=== PATIENT | male | born 1970 | race Caucasian/White ===

== ENCOUNTER 2022-04-22 07:12 | Outpatient (REF) | payer OTHER, SELFPAY ==
[2022-04-22 11:40] LABS: Hematocrit 44.5 % (42.0-52.0); Hemoglobin 15.3 g/dl (14.0-18.0); Mean Corpuscular HGB Conc 34.4 g/dl (31.0-36.0); Mean Corpuscular Volume 93.1 fL (80.0-98.0); Mean Platelet Volume 10.7 fL (9.4-12.4); Platelet Count 156 X10*3/uL (160-400); Red Blood Count 4.78 X10*6/uL (4.60-5.80); Red Cell Distribution Width 12.1 % (11.0-16.0); White Blood Count 5.2 X10*3/uL (4.8-10.8)
[2022-04-22 12:14] LABS: Alanine Aminotransferase 7 U/L (0-40); Albumin Level 4.5 g/dL (3.5-5.0); Alkaline Phosphatase 52 U/L (39-117); Anion Gap 15 (12-20); Aspartate Amino Transferase 18 U/L (5-37); Bilirubin Total 1.2 mg/dL (0.0-1.0); Blood Urea Nitrogen 14 mg/dL (9-16); Calcium 9.5 mg/dL (8.4-10.2); Carbon Dioxide 27 mmol/L (22-29); Chloride 103 mmol/L (96-108); Cholesterol 199 mg/dL; Estimated Glomerular Filt Rate > 60; Glucose Fasting 94 mg/dL (60-99); HDL Cholesterol 55 mg/dL; LDL Cholesterol Calculated 128 mg/dl; Potassium 4.4 mmol/L (3.3-5.1); Sodium 141 mmol/L (135-145); Total Protein 6.8 g/dL (6.5-8.0); Triglycerides 83 mg/dL
[2022-04-22 12:26] LABS: Vitamin B12 1055 pg/mL (200-900)
== END 2022-04-22 07:13 | disposition home or self-care (01) ==
LOC: HO.WFDLDS 07:12
PROVIDERS: Visit Provider Hospitalist
DX: Z00.00 Encounter for general adult medical examination without abnormal findings (principal); Z86.39 Personal history of other endocrine, nutritional and metabolic disease
CPT/HCPCS: 36415; 80053; 80061; 82607; 84443; 85027

== ENCOUNTER 2022-05-04 09:24 | Outpatient (REF) | payer OTHER, SELFPAY ==
[2022-05-10 20:03] LABS: PSA, Ultra Sensitive 0.57 ng/mL
== END 2022-05-04 09:25 | disposition home or self-care (01) ==
LOC: HO.WFDLDS 09:24
PROVIDERS: Visit Provider Hospitalist
DX: Z12.5 Encounter for screening for malignant neoplasm of prostate (principal)
CPT/HCPCS: 36415; 84153

== ENCOUNTER → 2022-11-10 09:16 | Outpatient (BNVA) | payer OTHER, SELFPAY | PROVIDERS: PCP Nurse Practitioner Family; Visit Provider Physician Assistant ==

== ENCOUNTER 2022-12-27 12:06 | Day surgery (SDC) | payer OTHER, SELFPAY ==
[2022-12-23 10:13] VITALS: BMI 24.1
--- NOTE | 2022-12-26 11:49 | P.CONAN_ITS ---
Documented by User: Connie Portillo NP 12/26/22 11:49 HPI - Anesthesia Eval Consult details Narrative: 52yo M for Colonoscopy PMFSH Active Problems Active Problems: All Active Problems (Updated 12/23/22 @ 10:00 by Barbara Joe RN) Normal physical exam (Acute) Screening for colon cancer (Acute) Hx of non anemic vitamin B12 deficiency (Acute) Screening for prostate cancer (Acute) Past Medical History Medical History (Updated 12/23/22 @ 10:00 by Barbara Joe RN) No pertinent past medical history Family History Family History Father Cardiovascular disease No family history of mental disorder Mother No family history of mental disorder Diabetes mellitus type 2 in obese Glaucoma Surgical History Surgical History (Updated 12/23/22 @ 10:13 by Barbara Joe RN) H/O colonoscopy History of arthroplasty of right ankle History of colon surgery Hx of inguinal hernia surgery Hx of tonsillectomy Social History Social History (Updated 11/10/22 @ 09:59 by Nadja Simon PA-C) Household Members: Spouse Housing: House Are you a primary school child care attendant to a significant other at home: No Do you presently have visiting nurse or other home services: No Alcohol intake: current Alcohol intake frequency: holidays/special occasions only Patient Tobacco Use Status: Never used Tobacco e-Cigarette/Vaping Use: Never Used Use of substances other than those prescribed or required for medical reasons: No Have you been hit, kicked, punched, or otherwise hurt by someone within the past year? If so, by whom?: No Are you DNR?: No Advance Directives Information Provided: Yes (as above noted) Advance Directives on File: No Recently lost weight without trying: No Eating poorly because of decreased appetite: No Nutrition Risks: No Nutritional Risk Poor oral hygiene: No service: Yes Current occupational status: employed Current occupation: [employer] Allergies Allergy/AdvReac Type Severity Reaction Status Date / Time Seasonal Allergies Allergy Intermediate Itchy Eyes Verified 12/27/22 13:06 Home Medications Medication Instructions Recorded Confirmed Last Taken Type fluticasone propionate 50 1 spray intranasal DAILY 04/13/22 12/23/22 Unknown History mcg/actuation nasal spray,suspension ascorbic acid (vitamin C) 1,000 mg 500 mg PO DAILY 12/23/22 12/23/22 Unknown History tablet (Vitamin C) cholecalciferol (vitamin D3) 125 125 mcg PO DAILY 12/23/22 12/23/22 Unknown History mcg (5,000 unit) tablet (Vitamin D3) Exam Exam Date and Time: December 26, 2022 1149 Height,Weight and Vital Signs: Height 5 ft 10 in Weight 76.204 kg Assessment and Plan Assessment Anesthesia Assessment: Chart Reviewed Documented by User: Kiera Bronson MD 12/27/22 13:32 [facility] Past Medical History Medical History (Updated 12/23/22 @ 10:00 by Barbara Joe RN) No pertinent past medical history Family History Family History Father Cardiovascular disease No family history of mental disorder Mother No family history of mental disorder Diabetes mellitus type 2 in obese Glaucoma Family history of problems with anesthesia: No Surgical History Surgical History (Updated 12/23/22 @ 10:13 by Barbara Joe RN) H/O colonoscopy History of arthroplasty of right ankle History of colon surgery Hx of inguinal hernia surgery Hx of tonsillectomy History of Problems with Anesthesia: No Social History Social History (Updated 11/10/22 @ 09:59 by Nadja Simon PA-C) Household Members: Spouse Housing: House Are you a primary school child care attendant to a significant other at home: No Do you presently have visiting nurse or other home services: No Alcohol intake: current Alcohol intake frequency: holidays/special occasions only Patient Tobacco Use Status: Never used Tobacco e-Cigarette/Vaping Use: Never Used Use of substances other than those prescribed or required for medical reasons: No Have you been hit, kicked, punched, or otherwise hurt by someone within the past year? If so, by whom?: No Are you DNR?: No Advance Directives Information Provided: Yes (as above noted) Advance Directives on File: No Recently lost weight without trying: No Eating poorly because of decreased appetite: No Nutrition Risks: No Nutritional Risk Poor oral hygiene: No service: Yes Current occupational status: employed Current occupation: [employer] Meds Allergies Allergy/AdvReac Type Severity Reaction Status Date / Time Seasonal Allergies Allergy Intermediate Itchy Eyes Verified 12/27/22 13:06 Home Medications Medication Instructions Recorded Confirmed Last Taken Type fluticasone propionate 50 1 spray intranasal DAILY 04/13/22 12/23/22 Unknown History mcg/actuation nasal spray,suspension ascorbic acid (vitamin C) 1,000 mg 500 mg PO DAILY 12/23/22 12/23/22 Unknown History tablet (Vitamin C) cholecalciferol (vitamin D3) 125 125 mcg PO DAILY 12/23/22 12/23/22 Unknown History mcg (5,000 unit) tablet (Vitamin D3) Exam Airway Mallampati Class: I TM Dist: >3cm Neck ROM: Full Loose/Missing/Broken Teeth: No Heart: rr Lungs: cta Assessment and Plan Assessment Anesthesia Assessment: Anesthesia Plan Discussed Final Anesthetic Review Family History of Problems with Anesthesia: No History of Problems with Anesthesia: No NPO: Yes ASA Class: I Final Preanesthetic Review: No Changes in Pt Med Stat, Meds/Allgs Chart Reviewed, Consent Obtained/Reviewed and Anes Risks/Benef Reviewed Patient Risk: Low Procedure Risk: Low Anesthetic Plan Anesthetic Plan: MAC: Disposition: Standard PACU
[2022-12-27 13:26] VITALS: BP 147/87; PULSE 85; RESP 15; TEMP 36.8; O2SAT 99
[2022-12-27] MEDS: Lactated Ringers 1,000 ML 100 ML IVCONT (13:34)
--- NOTE | 2022-12-27 14:42 | MHC.SHP ---
Pre-Procedural Eval Section A Date of Service: 12/27/22 Section B Chief Complaint: Encounter for screening for malignant neoplasm Relevant Family History (Specify if Yes): No Relevant Social History: None Present Medications: see Short Stay Collaborative assessment Medical History: No relevant PMH History of Previous Operations: Relevant previous surgery/procedure and date(s) (H/O colonoscopy History of arthroplasty of right ankle History of colon surgery Hx of inguinal hernia surgery Hx of tonsillectomy) Allergies: Allergies Allergy/AdvReac Type Severity Reaction Status Date / Time Seasonal Allergies Allergy Intermediate Itchy Eyes Verified 12/27/22 13:06 Review of Systems Sugical H&P ROS: Negative: Constitution, Cardiovascular, Respiratory, Neurological, Psychiatric, Hem-Onc, Allergic/Immunologic, Gastrointestinal, Genitourinary, Musculoskeletal, Integumentary, Endocrine and Eyes/Ears/Nose/Throat Exam Surgical H&P Exam: Normal: HEENT, Normal: Heart, Normal: Lungs, Normal: Extremities, Normal: Abdomen, Normal: Skin and Normal: Neurological Plan Diagnosis/Plan: Unchanged I have reviewed the history and physical and performed a pertinent physical examination on my patient. No changes have occurred unless specified. Time Spent With Patient Time: Total time managing care of this patient today ____ minutes.
--- NOTE | 2022-12-27 15:08 | P.OP_ITS ---
Operative Note Operative Note Date of Service: 12/27/22 Narrative: Operative Information Procedure Description: Colonoscopy Indication: screening Anesthesia: MAC COLONOSCOPY Instrument: Olympus variable stiffness ADULT scope 190L Colonoscopy Monitoring: Vital signs and clinical assessment, continuous EKG monitoring, Pulse oximetry, Carbon Dioxide monitoring and blood pressure monitoring were done throughout the procedure. Colon withdrawal time was 8 minutes. Procedure: The patient was placed in the left lateral decubitis position and pre-procedure medications were administered. After a digital rectal examination of the ano-rectum, the video colonoscope was inserted into the rectum and advanced through the colon to the cecum/TI. The colonoscope was slowly withdrawn in a retrograde panoramic fashion and the colon mucosa was carefully examined including a retroflexed view of the rectum. Findings and interventions are described below. Procedure Difficulty: easy Findings: Terminal Ileum-normal Cecum: 4-6 mm sessile polyp removed with cold forceps Ascending Colon: normal Transverse Colon -normal Descending Colon:normal Sigmoid Colon: normal Rectum: Retroflexion with small internal hemorrhoids, grade I Anorectum - normal Colon preparation: [facility] Mark Bowel Preparation Scale Right colon; 2 Transverse colon: 3 Left colon; 3 (0 = Unprepared colon segment with mucosa not seen due to solid stool that cannot be cleared. 1 = Portion of mucosa of the colon segment seen, but other areas of the colon segment not well seen due to staining, residual stool and/or opaque liquid. 2 = Minor amount of residual staining, small fragments of stool and/or opaque li quid, but mucosa of colon segment seen well. 3 = Entire mucosa of colon segment seen well with no residual staining, small fragments of stool or opaque liquid) Impression and Post Procedure Diagnosis: polyp internal hemorrhoids Plan: High fiber diet leaflet Avoid straining at stool, epsom salts and sitz bath, anusol supps or cream Repeat Colonoscopy in 5-7 years due to polyp or earlier if clinically indicated Above findings were reviewed with the patient and relevant handouts were provided if indicated.
[2022-12-27 15:14] VITALS: BP 96/63; RESP 16; TEMP 36.7; O2SAT 97
[2022-12-27 15:29] VITALS: BP 101/58; PULSE 78; RESP 16; O2SAT 99
[2022-12-27 15:37] VITALS: BP 123/75; PULSE 71; RESP 14; TEMP 36.8; O2SAT 99
== END 2022-12-27 15:40 | disposition home or self-care (01) ==
PROVIDERS: PCP Nurse Practitioner Family; Visit Provider Internal Medicine Gastroenterology
PROC: 0DJD8ZZ Inspection of Lower Intestinal Tract, Via Natural or Artificial Opening Endoscopic (ICD-10-PCS; CPT 45378; principal; 2022-12-27 15:20)
DX: Z12.11 Encounter for screening for malignant neoplasm of colon (principal); D12.0 Benign neoplasm of cecum; K64.0 First degree hemorrhoids; E53.8 Deficiency of other specified B group vitamins; Z98.890 Other specified postprocedural states; J30.2 Other seasonal allergic rhinitis; Z79.51 Long term (current) use of inhaled steroids; Z79.899 Other long term (current) drug therapy
CPT/HCPCS: 45380; 88305

== ENCOUNTER 2023-01-17 08:24 | Outpatient (AMB) | payer OTHER, SELFPAY ==
--- NOTE | 2023-01-17 08:25 | A.OFFVIS_ITS ---
Intake Vital Signs 01/17/23 08:30 Height 5 ft 10 in Weight 170 lb BMI 24.4 BP 128/72 Blood Pressure Location Lt brachial Position Sitting Pulse 74 Intake Visit Reasons: s/p colon- [place] Intake Note: Patient follow up for Colonoscopy results. Patient denies any GI issues. 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 Required: No Accompanied by: Self / Same As Patient Allergies Seasonal Allergies Allergy (Intermediate, Verified 12/27/22 13:06) Itchy Eyes HPI HPI Comments History of Present Illness Details A 52-year-old male follows up after recent screening colonoscopy-with polypectomy Tolerated procedure well He has no GI or general complaints Reviewed procedure report and pathology No nausea, vomiting, hematemesis, hematochezia fever chills PFSH Medical History (Updated 01/17/23 @ 08:33 by Nadja Simon PA-C) No pertinent past medical history Surgical History H/O colonoscopy History of arthroplasty of right ankle History of colon surgery Hx of inguinal hernia surgery Hx of tonsillectomy Family History Father Cardiovascular disease No family history of mental disorder Mother No family history of mental disorder Diabetes mellitus type 2 in obese Glaucoma Social History Household Members: Spouse Housing: House Are you a primary healthcare translator to a significant other at home: No Do you presently have visiting nurse or other home services: No Alcohol intake: current Alcohol intake frequency: holidays/special occasions only Patient Tobacco Use Status: Never used Tobacco e-Cigarette/Vaping Use: Never Used service: Yes Current occupational status: employed Current occupation: [employer] Review of Systems Const All systems reviewed & are unremarkable except as noted in HPI and below Card Denies chest pain and Denies dyspnea Resp Denies dyspnea Physical Exam Vital Signs: Last Vital Signs Pulse 74 01/17/23 08:30 BP 128/72 01/17/23 08:30 BMI result Body Mass Index 24.4 Const General: cooperative, healthy appearing and well groomed Orientation/consciousness: patient oriented x3 Limitations: no limitations Resp Effort & Inspection: normal respiratory effort and able to speak in complete sentences Neuro General: patient oriented x3 Extrem General: Yes full ROM Psych Appearance: grossly normal and well kempt Mental Status: mental status grossly normal Speech and movement: Normal speech and movement present Affect: normal affect Attitude: cooperative Thought process: Normal thought process present Thought content: Normal thought content present Results Reviewed Results Reviewed: mpression and Post Procedure Diagnosis: polyp internal hemorrhoids Plan: High fiber diet leaflet Avoid straining at stool, epsom salts and sitz bath, anusol supps or cream Repeat Colonoscopy in 5-7 years due to polyp or earlier if clinically indicated Name:?Sachin Smith Age/Sex: 52/M Attending: Roxane Duron MD : 1970 Submitted by: Roxane Duron MD Copies to: Annabel Mckeon [facility] MR #: [id number] ? Status: [facility] Collected: 12/27/22 Location: [facility] Received: 12/28/22 Diagnosis Colon, cecal polyp:? Tubular adenoma; negative for high-grade dysplasia and carcinoma. Clinical History Pre-Op Dx:? Colon cancer screening Post-Op Dx: Colon polyp, internal hemorrhoid Assessment & Plan Assessment & Plan (1) Tubular adenoma of colon: Comment: AFDR colon screening at 39 Code(s): D12.6 - Benign neoplasm of colon, unspecified Plan: repeat colon 5 years Plan repeat 5 years Diagnosis Colon, cecal polyp:? Tubular adenoma; negative for high-grade dysplasia and carcinoma. Repeat colon 5 years Patient Instructions: Very pleasant 52-year-old male family history colon polyps, follows up after recent colonoscopy with polypectomy Reviewed procedure report and pathology repeat colon 5 years AFDR colon screening at 39 Encouraged to call questions or concerns Coding Level of Care Code Est Pt Level 3 (45423) Diagnoses Tubular adenoma of colon D12.6 Time Spent (min) 20
[2023-01-17 08:30] VITALS: BP 128/72; PULSE 74; BMI 24.4
== END 2023-01-17 08:46 | disposition home or self-care (01) ==
PROVIDERS: PCP Nurse Practitioner Family; Visit Provider Physician Assistant
DX: D12.0 Benign neoplasm of cecum (principal)
CPT/HCPCS: 99213

== ENCOUNTER → 2023-01-17 08:24 | Outpatient (BNVA) | payer OTHER, SELFPAY | PROVIDERS: PCP Nurse Practitioner Family; Visit Provider Physician Assistant ==

== ENCOUNTER 2023-06-13 08:24 | Outpatient (AMB) | payer OTHER, SELFPAY ==
[2023-06-13 08:26] VITALS: BP 128/78; PULSE 67; RESP 13; TEMP 36.3; O2SAT 99; BMI 24.7
--- NOTE | 2023-06-13 08:26 | A.OFFPC_ITS ---
Vital Signs 06/13/23 08:26 Height 5 ft 10 in Weight 172 lb 6 oz BMI 24.7 BP 128/78 Blood Pressure Location Rt brachial Position Sitting Respiration 13 Pulse 67 Pulse Source Pulse Oximeter Temp 97.3 F Temp Source Temporal Artery Scan Pulse Oximetry (%) 99 Oxygen Delivery Method Room Air Intake Visit Reasons: PE Floor Runner Required: No Accompanied by: Self / Same As Patient Allergies Seasonal Allergies Allergy (Intermediate, Verified 06/13/23 08:43) Itchy Eyes Medication List - Last Reconciled 06/13/23 by Annabel Mckeon CNP ascorbic acid (vitamin C) (Vitamin C) 500 mg PO DAILY cholecalciferol (vitamin D3) (Vitamin D3) 125 mcg PO DAILY fluticasone propionate 50 mcg/actuation 1 spray intranasal DAILY Tobacco use date assessed: 06/13/23 Dental Screening Dental Screen Date: 06/13/23 Did you have a dental visit in the last 12 months?: Yes Did you have a dental problem in the last 6 months where you did not have access to dental care?: No Was dental information given to patient?: Patient has dentist HPI HPI Comments History of Present Illness Details 52-year-old male presents for an extende d physical exam His former PCP was GILLIAN who is no longer with the practice He has history of tubular adenoma of the colon and non anemic vitamin B12 deficiency His last routine blood work was over a year ago He offers no complaints and denies acute symptoms at this time Last colonoscopy: 12/28/2022: polyp. Next colonoscopy in 5 years Shingrix vaccines: up-to-date [facility] Medical History No pertinent past medical history Surgical History H/O colonoscopy History of colon surgery Hx of inguinal hernia surgery History of arthroplasty of right ankle Hx of tonsillectomy Family History Father Cardiovascular disease No family history of mental disorder Mother No family history of mental disorder Diabetes mellitus type 2 in obese Glaucoma Social History Household Members: Spouse Housing: House Are you a primary respite care provider to a significant other at home: No Do you presently have visiting nurse or other home services: No Alcohol intake: current Alcohol intake frequency: holidays/special occasions only Patient Tobacco Use Status: Never used Tobacco e-Cigarette/Vaping Use: Never Used service: Yes Current occupational status: employed Current occupation: [employer] Cognitive needs: No Hearing needs: No Vision needs: No Questionnaire PHQ-9 Over the last 2 weeks, how often have you been bothered by any of the following problems? 1. Little interest or pleasure in doing things: several days 2. Feeling down, depressed, or hopeless: not at all 3. Trouble falling or staying asleep, or sleeping too much: not at all 4. Feeling tired or having little energy: not at all 5. Poor appetite or overeating: not at all 6. Feeling bad about yourself - or that you are a failure or have let yourself or your family down: not at all 7. Trouble concentrating on things, such as reading the newspaper or watching television: not at all 8. Moving or speaking so slowly that other people could have noticed. Or the opposite - being so fidgety or restless that you have been moving around a lot more than usual: not at all 9. Thoughts that you would be better off or of hurting yourself in some way: not at all Total score: 1 Depression Screening Interpretation: Negative Depression Screening Done: Yes 11227 - PHQ-9 Billing: Yes Source: Developed by Drs. Maximo Hinojosa, Tamara Collins, Norman Diego and colleagues, with an educational shawna from [employer]. Thrive Questionnaire Date Thrive assessed: 06/13/23 I am a: Patient What is your living situation today?: I have a steady place to live Within the past 12 months, did the food you bought not last and you didn't have the money to get more?: Never true Within the past 12 months, did you worry whether your food would run out before you got money to buy more?: Never true Do you have trouble paying for medicines?: No Do you have trouble getting transportation to medical appointments?: No Do you have trouble paying your heating and electricity bill?: No Do you have trouble taking care of your child, family member or friend?: No Do you have trouble with day-to-day activities such as bathing, preparing meals, shopping, managing finances, etc.?: No Are you currently unemployed and looking for a job?: No Are you interested in more education?: No Please select the resources that you would like help with: None Currently or been in a relationship where the following occur: no concerns reported AUDIT C Alcohol Use Questionnaire (AUDIT-C) 1. How often do you have a drink containing alcohol?: 4 or more times a week 2. How many drinks containing alcohol do you have on a typical day when you are drinking?: 1 or 2 3. How often do you have six or more drinks on one occasion?: Never Total Score: 4 MERLE-7 AMB Questionnaire MERLE-7 Date MERLE - 7 assessed: 06/13/23 Feeling nervous, anxious, or on edge: 0 = Not at all Not being able to stop or control worryin = Not at all Worrying too much about different things: 0 = Not at all Trouble relaxin = Several days Being so restless that it is hard to sit still: 0 = Not at all Becoming easily annoyed or irritable: 1 = Several days Feeling afraid as if something awful might happen: 0 = Not at all Total MERLE-7 score (0-4 normal; 5-9 mild; 10-14 moderate; 15-21 severe): 2 Source: Developed by Drs. Maximo Hinojosa, Tamara Collins, Norman Diego and colleagues, with an educational shawna from [employer]. Review of Systems Const Details: Denies chills, Denies fatigue, Denies fever(s), Denies headache(s) and Denies weakness HEENT Denies change in vision, Denies dizziness, Denies headache(s), Denies hearing loss, Denies nasal congestion, Denies sinus pain, Denies sinus pressure and Denies sore throat Card Denies chest pain, Denies lightheadedness, Denies dyspnea and Denies other (palpitations) Resp Denies cough, Denies dyspnea and Denies wheezing GI Denies abdominal pain, Denies melena, Denies hematochezia, Denies change in bowel habits, Denies dyspepsia and Denies nausea Denies hematuria and Denies dysuria Musc Denies abnormal gait, Denies myalgias, Denies arthralgias, Denies numbness and Denies tingling Skin/Breast Denies rash, Denies unusual bruising and Denies wounds Neuro Denies abnormal gait, Denies dizziness, Denies headache(s), Denies memory loss, Denies numbness, Denies Sensory deficit (Neuro), Denies tingling and Denies weakness Psych Denies anxiety, Denies depression and Denies memory loss Endo Denies cold intolerance, Denies fatigue, Denies heat intolerance, Denies polydipsia and Denies polyuria Jonny/Lymph Denies easy bleeding and Denies easy bruising Aller/Immun Denies wheezing Physical exam (Primary Care) Vital Signs: Last Vital Signs Temp 97.3 F 06/13/23 08:26 Pulse 67 06/13/23 08:26 Resp 13 06/13/23 08:26 BP 128/78 06/13/23 08:26 Pulse Ox 99 06/13/23 08:26 Oxygen Delivery Method Room Air 06/13/23 08:26 BMI result Body Mass Index 24.7 Tobacco/Smoking Status: Tobacco use Status Tobacco use date assessed 06/13/23 06/13/23 08:35 Patient Tobacco Use Status Never used Tobacco 06/13/23 08:35 e-Cigarette/Vaping Use Never Used 06/13/23 08:35 PHQ-9: PHQ-9 Score PHQ-9: Total score 1 06/13/23 08:35 Depression Screening Interpretation: Negative Thrive Assessment: Date of Thrive Assessment Date Thrive assessed 06/13/23 06/13/23 08:35 Currently or been in a relationship where the following occur: no concerns reported Const Other: General: no acute distress, well developed, alert and awake Nutritional Appearance: well nourished Orientation/consciousness: patient oriented x3 HENMT Head: Yes normocephalic and Yes atraumatic Ears: hearing grossly normal bilaterally and TM's normal bilaterally General nose exam: Normal external nose present and Normal nares present Mouth: Normal oral and palatal mucosa present and moist mucous membranes Teeth and gingiva: dentition normal Throat: Yes oropharynx normal Eyes Pupils: Equal, round and reactive pupils present and Pupil accommodation reflex normal EOM: EOMs intact bilaterally Neck Neck: Yes normal visual inspection, Yes no lymphadenopathy and Yes trachea midline Thyroid: Thyroid normal Carotids: no bruits Lymphatic: no lymphadenopathy noted Chest Chest palpation & inspection: normal inspection of the chest Resp Effort & Inspection: normal respiratory effort Auscultation: clear to auscultation bilaterally Cardio Rate: regular rate Rhythm: regular rhythm Heart sounds: S1 normal heart sound present, S2 normal heart sound present, no gallops, no murmurs and no rubs Bruits: no abdominal aortic bruits and no carotid bruits GI Palpation (GI): No Abdominal aortic bruit present, Soft to palpation, nontender, No hepatosplenomegaly present and No Rebound tenderness present Auscultation: normal bowel sounds General: Yes no CVA tenderness Back/Spine/Pelvis Back: no CVA tenderness Cervical Spine: cervical ROM normal and No Cervical spine tenderness Thoracic/Lumbar Spine: thoraco-lumbar ROM normal, No pain with thoraco-lumbar ROM, No thoracic spinal tenderness and No lumbar spinal tenderness Skin General: warm and dry. Normal skin color. Normal skin turgor Lesions: no lesions Rashes: no rashes Trauma: no lacerations or abrasions Wounds: no wounds Nails: normal Neuro General: patient oriented x3, gait normal and CN's II-XI intact bilaterally Cranial nerves: Yes Equal, round and reactive pupils present Cognition (Neuro): normal cognition Gait exam (Neuro): Normal gait present Motor exam (neuro): 5/5 motor strength present throughout Sensory Exam: No Sensory deficit (Neuro) Deep tendon reflexes (DTR's): Right patellar reflex intensity grade: 2+ and Left patellar reflex intensity grade: 2+ Extrem General: Yes normal to inspection, No edema and No calf tenderness Psych Appearance: grossly normal Affect: normal affect Attitude: cooperative Thought process: Normal thought process present Assessment and Plan Assessment & Plan (1) Normal physical exam: Code(s): Z00.00 - Encounter for general adult medical examination without abnormal findings Plan: No significant physical restrictions or limitations noted Advised to get routine fasting blood work done and schedule a telehealth visit for labs review He takes vitamin D3 125 mcg daily in the winter months. Encouraged to decrease vitamin D3 to 25 or 50 mcg daily Follow-up with symptoms or concerns Verbalized understanding and agreed with treatment plan (2) Screening for prostate cancer: Code(s): Z12.5 - Encounter for screening for malignant neoplasm of prostate Plan: PSA lab ordered (3) Laboratory tests ordered as part of a complete physical exam (CPE): Code(s): Z00.00 - Encounter for general adult medical examination without abnormal findings Plan: Fasting labs ordered as part of a complete physical exam. Advised to fast for at least 10 hours before getting labs drawn. May drink water Verbalized understanding and agreed with treatment plan. Orders: Orders Comprehensive [place]. Panel Fast Today Z00.00 - Encounter for general adult medical examination without abnormal findings PSA, Ultra Sensitive Today Z12.5 - Encounter for screening for malignant neoplasm of prostate Complete Blood Count Auto Diff Today Z00.00 - Encounter for general adult medical examination without abnormal findings Lipid Panel Today Z00.00 - Encounter for general adult medical examination without abnormal findings TSH reflex Free T4 Today Z00.00 - Encounter for general adult medical examination without abnormal findings Coding Level of Care Code Est Pt Prev Care 40-64y(34402) Diagnoses Normal physical exam Z00.00 Screening for prostate cancer Z12.5 Laboratory tests ordered as part of a complete physical exam (CPE) Z00.00
== END 2023-06-13 09:06 | disposition home or self-care (01) ==
PROVIDERS: PCP Nurse Practitioner Family; Visit Provider Nurse Practitioner Family
DX: Z00.00 Encounter for general adult medical examination without abnormal findings (principal); Z12.5 Encounter for screening for malignant neoplasm of prostate
CPT/HCPCS: 99396

== ENCOUNTER 2023-06-13 09:01 | Outpatient (REF) | payer OTHER, SELFPAY ==
[2023-06-13 10:42] LABS: MANUAL DIFF FLAG NO
[2023-06-13 10:52] LABS: Basophils Absolute Auto 0.1 X10*3/uL (0.0-0.2); Eosinophils Absolute Auto 0.1 X10*3/uL (0.0-0.4); Eosinophils Percent Auto 2.3 % (0-4); Hematocrit 42.1 % (42.0-52.0); Hemoglobin 14.6 g/dl (14.0-18.0); Imm Gran Abs Auto 0.01 X10*3/uL (0.00-0.03); Imm Gran Pct Auto 0.2 % (0.0-0.4); Lymphocytes Absolute Auto 1.2 X10*3/uL (1.2-4.9); Lymphocytes Percent Auto 24.1 % (20-40); Mean Corpuscular HGB Conc 34.7 g/dl (31.0-36.0); Mean Corpuscular Hemoglobin 32.8 pg (27.0-33.0); Mean Corpuscular Volume 94.6 fL (80.0-98.0); Monocytes Absolute Auto 0.4 X10*3/uL (0.1-1.2); Monocytes Percent Auto 8.3 % (2-11); Neutrophils Absolute Auto 3.1 x10*3/uL (2.0-8.3); Neutrophils Percent Auto 64.1 % (45-73); Platelet Count 190 X10*3/uL (160-400); Red Blood Count 4.45 X10*6/uL (4.60-5.80); Red Cell Distribution Width 12.1 % (11.0-16.0); White Blood Count 4.8 X10*3/uL (4.8-10.8)
[2023-06-13 12:59] LABS: Alanine Aminotransferase 6 U/L (0-40); Albumin Level 4.3 g/dL (3.5-5.0); Alkaline Phosphatase 49 U/L (39-117); Anion Gap 11 (12-20); Aspartate Amino Transferase 19 U/L (5-37); Bilirubin Total 1.1 mg/dL (0.0-1.0); Blood Urea Nitrogen 14 mg/dL (9-16); Calcium 9.4 mg/dL (8.4-10.2); Carbon Dioxide 29 mmol/L (22-29); Chloride 103 mmol/L (96-108); Cholesterol 193 mg/dL (<200); Estimated Glomerular Filt Rate > 60; Glucose Fasting 96 mg/dL (60-99); HDL Cholesterol 66 mg/dL (>40); LDL Cholesterol Calculated 110 mg/dL (<100); Potassium 4.1 mmol/L (3.3-5.1); Sodium 139 mmol/L (135-145); TSH reflex Free T4 1.66 uIU/mL (0.32-4.0); Total Protein 6.7 g/dL (6.5-8.0); Triglycerides 85 mg/dL (<150)
[2023-06-17 19:50] LABS: PSA, Ultra Sensitive 0.65 ng/mL
== END 2023-06-13 09:02 | disposition home or self-care (01) ==
LOC: HO.WFDLDS 09:01
PROVIDERS: Visit Provider Nurse Practitioner Family
DX: Z00.00 Encounter for general adult medical examination without abnormal findings (principal); Z12.5 Encounter for screening for malignant neoplasm of prostate
CPT/HCPCS: 36415; 80053; 80061; 84153; 84443; 85025